=== PATIENT | female | born 1950 | race Caucasian/White ===

== ENCOUNTER 2023-09-28 11:41 | Emergency (ER) | payer OTHER ==
[~2023-09-28] VITALS: Ht 160 cm; Wt 79.4 kg
[~2023-09-28 11:41] MED LIST: ASPI-1393 PO; LEVO75TA7 PO; VITD2000 PO
[2023-09-28 12:02] VITALS: BP_SYST 161; PULSE 104; RESP 22; TEMP 98.3; O2SAT 99
[2023-09-28] MEDS ORDERED: IBUPROFEN 600 MG TABLET PO ONE (12:15)
[2023-09-28] MEDS ORDERED: TRAM50TA2 PO (13:25)
[2023-09-28 13:47] VITALS: BP_SYST 161; PULSE 108; RESP 18; TEMP 97.2; O2SAT 97
[2023-09-28] MEDS ORDERED: DOCU-144 PO (13:50)
== END 2023-09-28 13:45 | disposition home or self-care (01) ==
LOC: SED 11:41
DX: S32.10XA Unspecified fracture of sacrum, initial encounter for closed fracture (principal); Z88.2 Allergy status to sulfonamides; Z79.899 Other long term (current) drug therapy; W01.0XXA Fall on same level from slipping, tripping and stumbling without subsequent striking against object, initial encounter; Y93.89 Activity, other specified; Y92.89 Other specified places as the place of occurrence of the external cause; Y99.8 Other external cause status
CPT/HCPCS: 72220-TC; 99283